=== PATIENT | female | born 1985 | race Caucasian/White ===

== ENCOUNTER 2022-04-15 01:14 | Day surgery (SDC) | payer BC, SELFPAY ==
[2022-04-07 13:20] VITALS: BMI 32.3
--- NOTE | 2022-04-07 13:20 | PC.NURSE ---
Report to the Outpatient Waiting Room, entrance under the green pavilion located off [facility], at time _0830_ on date _04/15/22__. Planned Procedure Time: _1030__. Time changes happen often and if your time is changed the preop area will call you the afternoon before. - You and your visitor will be asked to self-screen and do not enter if you have any COVID symptoms. - We encourage only one visitor and NO visitors under age 16 are allowed at this time. Your visitor will receive communication by the phone number that is given day of service. - The patient visitor is requested to social distance or may leave the building when not with patient due to restrictions. - A mask is required within the hospital. Patients may have clear liquids (water, carbonated beverages, clear teas, apple juice) until 3 hours prior to surgery with a maximum of 20 ounces. - No food from midnight until time of surgery - Infants may have breast milk until 4 hours before surgery, formula 6 hours prior to surgery. - Children will be allowed to drink immediately following surgery. If applicable, please bring a bottle or sippy cup to assist with drinking. Juice, water, soda, and popsicles are readily available. For infants on formula, please bring formula the day of surgery. Pacifiers are allowed. Take the following medications with a SIP of water the morning of surgery: _none__ Medications to discontinue per physician Date to take last dose Please no make-up, nail lithuanian, hairspray, perfume, deodorant, or body powder the day of surgery. No jewelry (including any body piercings) or valuables the day of surgery, leave them at home. Please take a shower or bath the night before, or the morning of, surgery with an antibacterial soap. Wear comfortable, loose fitting clothing. Children are encouraged to wear pajamas. - Jewelry must be removed prior to entering the operating room. Rings and piercings that are not removed may be cut off. - The hospital will not accept responsibility for valuables. - Please leave all valuables, including medications, at home the day of surgery. If you are going home after surgery, a licensed rickshaw driver must drive you home. - NO public transportation without another adult. - We recommend that an adult stay with you for 24 hours following discharge. - We also recommend that you do not drive, make important decision, drink alcoholic beverages, or take any drugs that were not prescribed by your health care provider for at least 24 hours after your discharge time. For Pediatric surgeries, we recommend two adults accompany the child home. Follow any additional instructions given to you from your surgeon. If you or anyone in your household have experienced Covid symptoms in the past week, please notify your surgeon or the nurse liaison at the phone number below for possible testing. Telephone instructions given to _patient_and asked if any additional questions and then verbalized understanding. Patient advised to call surgeon office or pre surgery nurse liaison [phone] if any additional questions.
--- NOTE | 2022-04-14 09:01 | PM.IMHP ---
H&P: HPI History of Present Illness Date/Time: 04/14/22 09:01 Chief Complaint: chronic sinusitis facial pressure facial pain postnasal drainage nasal obstruction nasal congestion septal deviation turbinate hypertrophy Narrative: planned surgical procedure Review of Systems Review of Systems: All systems reviewed & are unremarkable except as noted in HPI and below PMFSH Family History Family History Mother Alcoholism Hypertension Sibling Asthma Grandparent Cancer Diabetes mellitus Heart disease Father Hypertension Social History Social History Smoking status: Never smoker Alcohol intake: current Drinks per week: 1 Substance use: never Living arrangements: with family Spiritual care concerns: No Meds Home Medications and Allergies Home Medications Medication Instructions Recorded Confirmed Type ferrous sulfate 325 mg (65 mg 325 mg PO DAILY 03/20/22 04/07/22 History iron) tablet (FeroSul) Allergies Allergy/AdvReac Type Severity Reaction Status Date / Time No Known Allergies Allergy Verified 04/07/22 13:11 Exam Narrative: big turbinates septal deviation Assessment and Plan Assessment and plan (1) Nasal congestion: Code(s): R09.81 - Nasal congestion Status: Acute Assessment and Plan: plan image guided endoscopic bilateral maxillary antrostomies without tissue removal and anterior ethmoidectomies bilaterally septoplasty turbinate reduction. risks discussed including bleeding infection damage to surrounding structures need further procedures blindness CSF leak brain damage brain change in vision. I have the images on me (2) Nasal septal deviation: Code(s): J34.2 - Deviated nasal septum Status: Acute (3) Hypertrophy of both inferior nasal turbinates: Code(s): J34.3 - Hypertrophy of nasal turbinates Status: Acute (4) Nasal septal deviation: Code(s): J34.2 - Deviated nasal septum Status: Acute (5) Nasal obstruction: Code(s): J34.89 - Other specified disorders of nose and nasal sinuses Status: Acute (6) Facial pressure: Code(s): R44.8 - Other symptoms and signs involving general sensations and perceptions Status: Acute (7) Chronic sinusitis: Code(s): J32.9 - Chronic sinusitis, unspecified Status: Acute (8) Nasal congestion: Code(s): R09.81 - Nasal congestion Status: Acute
--- NOTE | 2022-04-14 12:44 | P.PNAN_ITS ---
Anes - Initial Pre Proc Eval Procedure: Operation Date: 04/15/22 08:45 Proposed Procedures p Septoplasty - Gómez Teran MD s Image Guided Bilateral Inferior Turbinectomy with Outfracture, Bilateral Maxillary Antrostomy without Tissue Removal, Bilateral Anterior Ethmoidectomy - Gómez Teran MD Date/Time: 04/14/22 12:44 Surgeon: Gómez Teran MD Pre Op Diagnosis: chronic sinusitis Patient Data Age: 36 Gender: F Height: 1.68 m Weight: 90.72 kg Allergies Allergy/AdvReac Type Severity Reaction Status Date / Time No Known Allergies Allergy Verified 04/15/22 07:02 Home Medications Medication Instructions Recorded Confirmed Type ferrous sulfate 325 mg (65 mg 325 mg PO DAILY 03/20/22 04/15/22 History iron) tablet (FeroSul) Patient hx anesthesia problems: none Family hx anesthesia problems: none Results Review: All pre-operative results and documents have been reviewed as part of the pre- operative evaluation. [facility] Past Medical History Medical History (Updated 04/14/22 @ 12:45 by Ar Hodges MD) Chronic sinusitis Nasal congestion Obesity Family History Family History Mother Alcoholism Hypertension Sibling Asthma Grandparent Cancer Diabetes mellitus Heart disease Father Hypertension Social History Social History Smoking status: Never smoker Alcohol intake: current Drinks per week: 1 Substance use: never Living arrangements: with family Spiritual care concerns: No Anes - Eval Final PreProcedure Day of Procedure 04/14/22 12:44 Patient weight: obese Heart: regular rate and rhythm Lungs: clear to auscultation and normal air movement Airway: Mallampati scale class II Neurological: alert and oriented Last oral intake: >/= 8 hours ASA classification: II Emergent: no Anesthetic plan: proceed Anesthesia type and monitoring: general ETT Results Review: All pre-operative results and documents have been reviewed as part of the pre- operative evaluation. Informed Consent: The patient's anesthetic plan and its attendant risks and benefits were discussed with the patient/family/POA. Questions were solicited and answers provided to the satisfaction of the patient/family/POA.
[2022-04-15] VITALS (9 sets, daily range): BP systolic 108–122; BP diastolic 63–79; PULSE 72–96; RESP 12–16; TEMP 36.6–36.8; O2SAT 94–100
--- NOTE | 2022-04-15 07:19 | WPDHPUPDATE1 ---
History and Physical Update Update Date/Time: 04/15/22 07:19 History and Physical has been reviewed, including an updated exam of the patient. There are NO changes in the patient's condition. Risks, benefits, and alternatives have been discussed and questions answered. Patient agrees to proceed with procedure.
[2022-04-15] MEDS: LACTATED RINGERS 1,000 ML 30 ML IV CONT ×2 (07:22→11:08)
[2022-04-15] MEDS: ACETAMINOPHEN 500 MG TABLET 1000 MG PO (07:23)
[2022-04-15] MEDS: ceFAZolin 2 GM/D5W 50 ML 2 GM/50 ML BAG IVPB (09:21)
[2022-04-15] MEDS: OXYMETAZOLINE HCL 0.05% NAS 15 ML BTL (*BKC) 1 SPRAY NASAL (10:09)
--- NOTE | 2022-04-15 11:15 | W.PM.PROC2 ---
Procedure Note - Detailed Date of Procedure 04/15/22 Pre-op Diagnosis chronic sinusitisWill deviation turbinate hypertrophy nasal obstruction nasal congestion Post-op Diagnosis Same Procedure Performed endoscopic assisted septoplasty inferior turbinate reduction bilaterally with outfracture bilateral endoscopic maxillary antrostomies without tissue removal as well as bilateral endoscopic anterior ethmoidectomies Surgeon Gómez Teran MD Anesthesia General Indications see above Findings caudally deviated septum to the right corrected big turbinates well reduced no perforations in the septum in the nasal septal flaps. Thickened mucoid purulence bilaterally the max no complications Description of Procedure patient identified consent verified. Patient brought operating room. Time-out performed. General anesthesia induced endotracheal tube secured taped to the left lower lip. Patient prepped draped position 2nd time-out performed. Image guidance unable to be utilized as the patient's CT did not cooperate air function with the [employer] navigation system. Afrin-soaked pledgets placed allowed to sit for 5 minutes then removed. 0 degree endoscope utilized septum at was caudally deviated so a kaley transection incision was made via anterior rhinoscopy with 15 blade 7 Burmese suction utilized to elevate left nasal septal. Right-sided flap then elevated. Anterior septum trimmed leaving a significant approximately 0.75-1 cm strut L type fashion. Deviated septum removed in total with Rosa once it was freed with 15 blade deep blade osteotome. Hemitransection incision closed with 4 interrupted 5 fast gut sutures. Turbinates then reduced submucosal plane all this occurred after the injection of 13 cc 1% lidocaine 100,000 parts epinephrine into the septum the turbinates. Turbinates reduced 2 mm turbinate blade submucosally and then outfractured with [place] elevator. Maxillary antrostomies performed with double ball tip probe backbiter straight through cut as well as microdebrider great care was ensured to cause no damage to the orbits as well as thick created natural or surgical communication from the surgical os to the natural os bilaterally. Thick mucoid purulence was located which is interesting and reassuring from a surgical standpoint. Anterior ethmoids performed with Kerrison as well as microdebrider. Sinus surgical cavities packed with Afrin-soaked pledgets for 5 minutes then removed Nova pack placed. Gallardo splints trimmed placed bilaterally sutured anteriorly using interrupted 3-0 nylon suture. Total blood loss only about 25 cc. Care the patient given over to Anesthesiology. Patient taken to PACU no complications. I performed all dictated portions of the procedure. Estimated Blood Loss -25.0 Drains No Packing Yes ( Nova pack) Pathology None sent Complications No immediate complications Condition Stable Disposition PACU
[2022-04-15] MEDS: oxyCODONE HCL (*CRX) 5 MG TAB IR PO (12:54)
== END 2022-04-15 13:36 | disposition home or self-care (01) ==
PROVIDERS: PCP Nurse Practitioner Family; Visit Provider Otolaryngology
PROC: (CPT 30520; principal; 2022-04-15 08:45)
PROC: (CPT 31254; 2022-04-15 08:45)
DX: J32.9 Chronic sinusitis, unspecified (principal); J34.3 Hypertrophy of nasal turbinates; R09.81 Nasal congestion; J34.2 Deviated nasal septum; J34.89 Other specified disorders of nose and nasal sinuses; E66.9 Obesity, unspecified; Z68.31 Body mass index [BMI] 31.0-31.9, adult
CPT/HCPCS: 31254; 31256; 30140; 30520; A9270; J0330; J0690; J1100; J1170; J2250; J2405; J2704; J3010; J7120

== ENCOUNTER 2023-07-03 14:33 | Outpatient (NON) | payer BC, SELFPAY | END 2023-07-03 14:34 | disposition home or self-care (01) | LOC: ANHGOSHLAB 14:35 | PROVIDERS: PCP Nurse Practitioner Family; Visit Provider Otolaryngology | DX: J32.9 Chronic sinusitis, unspecified (principal) | CPT/HCPCS: 87070; 87075; 87077; 87186; 87205 ==

== ENCOUNTER 2023-08-14 08:24 | Outpatient (CLI) | payer BC, SELFPAY ==
--- NOTE | ~2023-08-14 | CT_ITS ---
EXAMINATION: CT sinus wo con DATE: 08/14/2023 08:34 INDICATION: Chronic sinusitis TECHNIQUE: Computed tomography (CT) of the paranasal sinuses was performed without contrast. Iterativ e reconstruction technique was employed. Exam dose: 414.22 mGy-cm total exam DLP. COMPARISON: None FINDINGS: Slight leftward bowing of the nasal septum. There is moderately prominent soft tissue swelling of the nasal turbinates. Status post bilateral nasal antral windows and partial ethmoidectomies. There is near complete opacification of the left frontal sinus, minimal mucoperiosteal thickening of the right frontal sinus. There is patchy opacification of the bilateral ethmoid sinuses. There is mild right and severe left maxillary sinus mucoperiosteal thickening. There is mild mucoperiosteal thickening of the right sphenoid sinus. The left sphenoid sinus is calderon r. The mastoid air cells are well-developed and aerated bilaterally. IMPRESSION: Status post bilateral nasal antral windows and partial ethmoidectomies Mucoperiosteal thickening of the paranasal sinuses sparing only the left sphenoid sinus, most promine nt at the left frontal and maxillary sinuses Reviewed, dictated and finalized at [facility]. Reviewed, dictated and finalized at [facility]. IMPRESSION: Status post bilateral nasal antral windows and partial ethmoidecto mies Mucoperiosteal thickening of the paranasal sinuses sparing only the left spheno id sinus, most prominent at the left frontal and maxillary sinuses
== END 2023-08-14 08:25 ==
PROVIDERS: PCP Nurse Practitioner Family; Visit Provider Otolaryngology
DX: J32.9 Chronic sinusitis, unspecified (principal)
CPT/HCPCS: 70486

== ENCOUNTER 2023-09-22 00:28 | Day surgery (SDC) | payer BC, SELFPAY ==
[2023-09-15 11:52] VITALS: BMI 30.7
--- NOTE | 2023-09-15 11:55 | PC.NURSE ---
Report to the Outpatient Waiting Room, entrance under the green pavilion located off [facility], at time 1030 on date 09/22/23. Planned Procedure Time: 1230. Time changes happen often and if your time is changed the preop area will call you the afternoon before. - You and your visitor will be asked to self-screen and do not enter if you have any COVID symptoms. - A mask is optional within the hospital at this time. Patients may have clear liquids (water, carbonated beverages, clear teas, apple juice) until 3 hours prior to surgery with a maximum of 20 ounces. - No food from midnight until time of surgery Take the following medications with a SIP of water the morning of surgery: N/A DO NOT STOP ANY OF YOUR OTHER PRESCRIPTION MEDICATIONS PRIOR TO SURGERY ?EXCEPT THE FOLLOWING Medications to discontinue per physician: N/A Date to take last dose: N/A Please no make-up, nail turkmen, hairspray, perfume, deodorant, or body powder the day of surgery. No jewelry (including any body piercings) or valuables the day of surgery, leave them at home. Please take a shower or bath the night before, or the morning of, surgery with an antibacterial soap. Wear comfortable, loose fitting clothing. - Jewelry must be removed prior to entering the operating room. Rings and piercings that are not removed may be cut off. - The hospital will not accept responsibility for valuables. - Please leave all valuables, including medications, at home the day of surgery. If you are going home after surgery, a licensed experienced truck driver must drive you home. - NO public transportation without another adult if you receive anesthesia. - We recommend that an adult stay with you for 24 hours following discharge. - We also recommend that you do not drive, make important decision, drink alcoholic beverages, or take any drugs that were not prescribed by your health care provider for at least 24 hours after your discharge time. Follow any additional instructions given to you from your surgeon. If you or anyone in your household have experienced Covid symptoms in the past week, please notify your surgeon or the nurse liaison at the phone number below for possible testing. Telephone instructions given to PT Nadine GUARDADO and asked if any additional questions and then verbalized understanding. Patient advised to call surgeon office or pre surgery nurse liaison [phone] if any additional questions.
--- NOTE | 2023-09-21 17:13 | P.HP_ITS ---
H&P: HPI History of Present Illness Date/Time: 09/21/23 17:13 Chief Complaint: Chronic sinusitis recurrent sinusitis Review of Systems Review of Systems: All systems reviewed & are unremarkable except as noted in HPI and below [facility] Past Medical History Medical History Chronic sinusitis Nasal congestion Obesity Family History Family History Mother Alcoholism Hypertension Sibling Asthma Grandparent Cancer Diabetes mellitus Heart disease Father Hypertension Social History Social History Smoking status: Never smoker Alcohol intake: current Drinks per week: 2 Substance use: never Substance use type: does not use Lack of Transportation: No Lack of Food: Never True Current Housing: I Have Housing Concerned About Future Housing: No Difficulty Paying Gas/Electric Bills: No Difficulty Paying for Meds: No Currently Unemployed: No Education: Bachelor's Degree Difficulty w/ Childcare or Family Care: No Living arrangements: with family Spiritual care concerns: No Meds Home Medications and Allergies Home Medications Medication Instructions Recorded Confirmed Type levofloxacin 750 mg tablet 750 mg PO DAILY #14 tabs 09/16/23 09/17/23 Rx spironolactone 50 mg tablet 50 mg PO DAILY [facility] 09/17/23 09/17/23 History Allergies Allergy/AdvReac Type Severity Reaction Status Date / Time Sulfa (Sulfonamide Allergy Severe hives Verified 09/15/23 11:51 Antibiotics) Exam Narrative: chronic appearing sinuses Assessment and Plan Assessment and plan (1) Recurrent sinusitis: Code(s): J32.9 - Chronic sinusitis, unspecified Status: Acute Assessment and Plan: we can add possible septoplasty will for sure in revision bilateral maxillary antrostomies total ethmoids sphenoidotomies frontal sinusotomies. Risks discussed bleeding infection demonstrated structures need further procedures CSF leak brain the brain damage her resolve symptoms change in vision total blindness septal perforation need for prolonged follow-up Kerrison mycotic use medication use damage any structures the clavicle by myself damage to any structure infection remains anesthesia including vocal cord paralysis. Patient voiced understanding and agreed. (2) Acute sinusitis: Code(s): J01.90 - Acute sinusitis, unspecified Status: Acute (3) Chronic sinusitis: Code(s): J32.9 - Chronic sinusitis, unspecified Status: Acute (4) Nasal septal deviation: Code(s): J34.2 - Deviated nasal septum Status: Acute
[2023-09-22] VITALS (11 sets, daily range): BP systolic 103–118; BP diastolic 59–78; PULSE 78–92; RESP 12–18; TEMP 36.6; O2SAT 92–100
--- NOTE | 2023-09-22 07:18 | WPDHPUPDATE1 ---
History and Physical Update Update Date/Time: 09/22/23 07:18 History and Physical has been reviewed, including an updated exam of the patient. There are NO changes in the patient's condition. Risks, benefits, and alternatives have been discussed and questions answered. Patient agrees to proceed with procedure.
[2023-09-22] MEDS: LACTATED RINGERS 1,000 ML 30 ML IV CONT ×2 (10:55→16:45)
[2023-09-22] MEDS: ACETAMINOPHEN 500 MG TABLET 1000 MG PO (11:03)
--- NOTE | 2023-09-22 11:12 | WPDANESEPPF ---
Anes - Initial Pre Proc Eval Procedure: Operation Date: 09/22/23 12:30 Proposed Procedures p Image Guided Endoscopic Revision Bilateral Maxillary Antrostomy, Bilateral Total Ethmoidectomy, Bilateral Sphenoidotomy, Bilateral Frontal Sinusotomy - Gómez Teran MD Date/Time: 09/22/23 11:12 Surgeon: Gómez Teran MD Pre Op Diagnosis: Chr Sinsusitis Patient Data Age: 38 Gender: F Height: 1.68 m Weight: 85.9 kg Last Vital Signs Temp 36.6 C 09/22/23 10:28 Pulse 87 09/22/23 10:28 Resp 16 09/22/23 10:28 BP 109/77 09/22/23 10:28 Pulse Ox 100 09/22/23 10:28 O2 Del Method Room Air 09/22/23 10:28 Allergies Allergy/AdvReac Type Severity Reaction Status Date / Time Sulfa (Sulfonamide Allergy Severe hives Verified 09/22/23 10:42 Antibiotics) Home Medications Medication Instructions Recorded Confirmed Type levofloxacin 750 mg tablet 750 mg PO DAILY #14 tabs 09/16/23 09/22/23 Rx spironolactone 50 mg tablet 50 mg PO DAILY ACNE 09/17/23 09/22/23 History Patient hx anesthesia problems: none Family hx anesthesia problems: none Results Review: All pre-operative results and documents have been reviewed as part of the pre-operative evaluation. [facility] Past Medical History Medical History Chronic sinusitis Nasal congestion Obesity Family History Family History Mother Alcoholism Hypertension Sibling Asthma Grandparent Cancer Diabetes mellitus Heart disease Father Hypertension Social History Social History Smoking status: Never smoker Alcohol intake: current Drinks per week: 2 Substance use: never Substance use type: does not use Lack of Transportation: No Lack of Food: Never True Current Housing: I Have Housing Concerned About Future Housing: No Difficulty Paying Gas/Electric Bills: No Difficulty Paying for Meds: No Currently Unemployed: No Education: Bachelor's Degree Difficulty w/ Childcare or Family Care: No Living arrangements: with family Spiritual care concerns: No Anes - Eval Final PreProcedure Day of Procedure 09/22/23 11:12 Patient weight: obese Heart: regular rate and rhythm Lungs: clear to auscultation Airway: Mallampati scale class II Neurological: alert and oriented Last oral intake: >/= 8 hours ASA classification: II Emergent: no Anesthetic plan: proceed Anesthesia type and monitoring: general ETT and standard monitoring Results Review: All pre-operative results and documents have been reviewed as part of the pre-operative evaluation. Informed Consent: The patient's anesthetic plan and its attendant risks and benefits were discussed with the patient/family/POA. Questions were solicited and answers provided to the satisfaction of the patient/family/POA.
[2023-09-22] MEDS: ceFAZolin 2 GM/D5W 50 ML 2 GM/50 ML BAG IVPB (12:59)
[2023-09-22] MEDS: OXYMETAZOLINE HCL 0.05% NAS 15 ML BTL (*BKC) 1 SPRAY NASAL (13:35)
[2023-09-22] MEDS: TOBRAMYCIN SULFATE 80 MG/2 ML VIAL 400 MG IRRIGATION (13:36)
[2023-09-22] MEDS: LIDO 1%/EPINEPHRINE 1:100,000 50 ML VIAL 15 ML INFILTRATE (13:36)
[2023-09-22] MEDS: MUPIROCIN 2% OINT 22 GM TUBE 1 APPLIC EACH NARE (15:59)
[2023-09-22] MEDS: fentaNYL CITRATE INJ (*CRX) 100 MCG/2 ML VIAL 25 MCG IV PUSH ×4 (16:56→17:21)
--- NOTE | 2023-09-22 17:04 | P.OP_ITS ---
Procedure Note - Detailed Date of Procedure 09/22/23 Pre-op Diagnosis Chr SinsusitisDeviation Post-op Diagnosis Same Procedure Performed endoscopic assisted septoplasty, bilateral image guided endoscopic maxillary antrostomies total ethmoidectomies sphenoidotomies frontal sinusotomies with propel placement, middle turbinectomies Surgeon Gómez Teran MD Anesthesia General Indications see above Findings severely diseased polypoid tissue in all the aforementioned sinuses especially the ethmoids and max is and frontals. Middle turbinates were struck deviated after reviewing the septum the kept falling back over had to remove them to get good access for the irrigation which will be doing after surgery. No damage to orbits skull base septum. Quilted the septum closed it gave a better result in after I put the Gallardo's and. Description of Procedure patient identified consent verified preoperative patient brought to the room. Time-out performed. Anesthesia induced general and endotracheal tube secured airway. Patient prepped draped position procedure confirmed 2nd time-out performed. Image guidance initiated confirmed Afrin-soaked pledgets placed for 5 minutes then removed. 0 degree endoscope utilized left maria eugenia right high septal deviation noted. Total 15 cc of 1% lidocaine 1 100 the parts epinephrine injected bilaterally septum inferior turbinates middle turbinates. [place] incision made high left-sided nasal septal flap elevated left-sided no perforation right nasal septal flap elevated underneath the deviated septum deviated septum removed high. There was still persistent right-sided deviation. Middle turbinates were noted to be scarred over full of polypoid edema boggy these removed bilaterally after injection with straight through cut stumps were cauterized with Bovie suction electrocautery setting of 10-15. No bleeding. Maxillary antrostomies performed a ball-tip probe straight through cut 30 degree endoscope 0 degree endoscope backbiter rad 40 0 degree image guided microdebrider is a. No damage to orbit no damage to nasolacrimal duct great care was taken to ensure the natural os connected to the surgical os. Ethmoids total ethmoidectomies performed with Kerrison microdebrider. Sphenoids performed under image guidance with [place] sphenoid punch. Frontal sinusotomies performed with 70 degree scope frontal sinus instruments [facility] frontal sinus seeker Calvin. The rights really really osteotomy can narrow. Propel stents were placed bilaterally bilateral nasal passages irrigated copiously with tobramycin infused nasal saline. Purulence was cultured bilaterally prior to the start of the procedure. Septum quilted with 5 0 fast on acute 5 0 plain gut on a Izaiah needle. Nova pack placed bilaterally. Care the patient given Anesthesiology performed all dictated portions procedure blood loss 125 cc no complications. Patient taken to PACU. Estimated Blood Loss 125 Drains No Packing Yes ( Nova pack) Pathology None sent Complications No immediate complications Condition Stable Disposition PACU [facility] Billing Surgery - Charge Forward: Surgery Billing
[2023-09-22] MEDS: oxyCODONE HCL (*CRX) 5 MG TAB IR PO (18:10)
[2023-09-22] MEDS: ONDANSETRON INJ 4 MG/2 ML VIAL IV PUSH (18:50)
[2023-09-22] MEDS: ONDANSETRON HCL ODT 4 MG TABLET PO (19:15)
== END 2023-09-22 19:17 | disposition home or self-care (01) ==
PROVIDERS: PCP Nurse Practitioner Family; Visit Provider Otolaryngology
PROC: (CPT 31256; principal; 2023-09-22 12:30)
PROC: (CPT 30520; 2023-09-22 12:30)
DX: J32.9 Chronic sinusitis, unspecified (principal); J34.2 Deviated nasal septum; J33.8 Other polyp of sinus; E66.9 Obesity, unspecified; Z68.30 Body mass index [BMI] 30.0-30.9, adult
CPT/HCPCS: 31256; 31257; 31276; 30520; 61782; 87070; 87075; 87205; A9270; C2625; J0330; J0690; J1100; J2250; J2405; J2704; J3010; J3260; J7040; J7120

== ENCOUNTER 2023-11-23 19:42 | Outpatient (NON) | payer BC, SELFPAY | END 2023-11-23 19:43 | disposition home or self-care (01) | LOC: ANHOBOP 19:44 | PROVIDERS: PCP Nurse Practitioner Family; Visit Provider Otolaryngology | DX: J32.9 Chronic sinusitis, unspecified (principal) | CPT/HCPCS: 87070; 87075; 87102; 87205; 87206 ==

== ENCOUNTER 2024-01-14 13:59 | Outpatient (NON) | payer BC, SELFPAY | END 2024-01-14 14:00 | disposition home or self-care (01) | PROVIDERS: PCP Nurse Practitioner Family; Visit Provider Otolaryngology | DX: J32.9 Chronic sinusitis, unspecified (principal) | CPT/HCPCS: 87070; 87075; 87076; 87181; 87205 ==